=== PATIENT | female | born 1985 | race Caucasian/White ===

== ENCOUNTER 2017-05-05 10:15 | Emergency (ER) | payer OTHER ==
[2017-05-05 11:14] VITALS: BP 118/79
--- NOTE | 2017-05-05 11:33 | UC ---
Ear Complaint HPI - HPI Summary HPI Summary: Patient presents to the with L sided ear pain since yesterday. She has been having a cough and congestion x 2 weeks and now just developed the cough. She denies any and all other symptoms. Denies pain in the throat, however she notes to pain in the L side of the neck and feels as though the ear has been "draining." She is otherwise healthy and takes no medications. Endorses sick contacts. - History of Current Complaint Chief Complaint: UCEar Stated Complaint: LEFT EAR PAIN Time Seen by Provider: 05/05/17 11:16 Hx Obtained From: Patient Hx Last Menstrual Period: 04/11/17 ?: No Onset/Duration: Sudden Onset Severity Initially: Moderate Severity Currently: Moderate Pain Intensity: 4 Associated Signs/Symptoms: Positive: URI Symptoms. Negative: Discharge, Hearing Loss, Foreign Body Sensation, Trauma to Ear - Allergies/Home Medications Allergies/Adverse Reactions: Allergies Allergy/AdvReac Type Severity Reaction Status Date / Time Penicillins Allergy Intermediate Rash Verified 05/05/17 11:17 Erythromycin Allergy Mild Stomach Verified 05/05/17 11:17 Cramps Home Medications: Home Medications Multiple Vitamins W/ Minerals [Multivitamin Womens] 1 tab PO DAILY 05/05/17 [ History Confirmed 05/05/17] PMH/Surg Hx/FS Hx/Imm Hx Previously Healthy: Yes - Surgical History Surgical History: Yes Surgery Procedure, Year, and Place: c- section, 2009 - Family History Known Family History: Positive: None - Social History Occupation: Employed Full-time Lives: With Family Alcohol Use: Rare Substance Use Type: None Smoking Status (MU): Never Smoked Tobacco - Immunization History Most Recent Influenza Vaccination: 02/17/15 Most Recent Tetanus Shot: 03/03/15 Most Recent Pneumonia Vaccination: never Review of Systems Constitutional: Negative Skin: Negative Eyes: Negative ENT: Ear Ache Respiratory: Negative, Cough Motor: Negative Neurovascular: Negative Musculoskeletal: Negative Neurological: Negative Is Patient Immunocompromised?: No All Other Systems Reviewed And Are Negative: Yes Physical Exam Triage Information Reviewed: Yes Appearance: Well-Appearing, Well-Nourished Vital Signs: Initial Vital Signs Temp 98.6 F 05/05/17 11:07 Pulse 90 05/05/17 11:07 Resp 18 05/05/17 11:07 BP 118/79 05/05/17 11:07 Pulse Ox 100 05/05/17 11:07 Vital Signs Reviewed: Yes Eye Exam: Normal Eyes: Positive: Conjunctiva Clear ENT: Positive: Pharynx normal, TMs normal. Negative: TM bulging, TM dull, TM red, Tonsillar swelling, Tonsillar exudate, Muffled voice, Dental tenderness, Sinus tenderness, Uvula midline Neck exam: Normal Neck: Positive: Supple, No Lymphadenopathy Respiratory Exam: Normal Respiratory: Positive: Chest non-tender, Lungs clear Neurological Exam: Normal Neurological: Positive: Alert Psychological: Positive: Normal Response To Family, Age Appropriate Behavior Skin Exam: Normal Ear Complaint Course/Dx - Course Course Of Treatment: Patient presents to the with L sided ear pain, cough and congestion. She denies wanting any medication for the cough, but states she would like to know if she has an ear infection. The TM's are clear with + cone of light. No erythema, pus pocket or drainage. I have advised she take an allergy medication which would draw the fluid out of the ear. For her URI symptoms, I have explained it is common for her to have fluid back up in the ear. She is unable to swallow tabs, so I have advised children's claritin chewables (to take 2). - Differential Dx/Diagnosis Provider Diagnoses: URI Discharge - Discharge Plan Condition: Stable Disposition: HOME Patient Education Materials: Earache (ED) Referrals: No Primary Care Phys,NOPCP [Primary Care Provider] - Additional Instructions: You have fluid in the ear which is treated with antihistamines Take the OTC children's chewable claritin. (loratadine) (Take 2 tabs or 10mg) You may also try SUDAFED (this will help draw out the fluid as well) If your symptoms become worse, return to the Humidifier in the home will help Drink plenty of liquids
== END 2017-05-05 11:29 | disposition home or self-care (01) ==
LOC: UCEAST 10:15
DX: J06.9 Acute upper respiratory infection, unspecified (principal); Z88.0 Allergy status to penicillin; Z88.1 Allergy status to other antibiotic agents
CPT/HCPCS: 99211; G0463

== ENCOUNTER 2019-01-06 08:30 | Emergency (ER) | payer BC, OTHER ==
[2019-01-06 08:41] VITALS: BP 136/84
--- NOTE | 2019-01-06 09:15 | UC ---
Eye Complaint HPI - HPI Summary HPI Summary: 33 year old female with no PMH, no medications, presents with irritation, drainage of L eye. Has a 3 year old at home, who was dx'd with bacterial conjunctivitis beginning of December, and her father dx'd ! 1-2 weeks ago. NO vision changes, + contact lens wearing, has not been wearing for past 2 days. no fever, chills, no sinus/ ear, throat pain. no other symptoms. - History of Current Complaint Chief Complaint: UCEye Stated Complaint: POSSIBLE PINK EYE Time Seen by Provider: 01/06/19 08:49 Hx Obtained From: Patient Hx Last Menstrual Period: stopped the pill 12/21, trying to become ?: No Onset/Duration: Sudden Onset Timing: Constant Severity Initially: Mild Severity Currently: None Pain Intensity: 1 Pain Scale Used: 0-10 Numeric Location of Injury: Conjunctiva Aggravating Factor(s): Nothing Alleviating Factor(s): Nothing Associated Signs And Symptoms: Positive: Negative, Drainage (Clear), Drainage ( Purulent). Negative: Vision Impairment Right, Vision Impairment Left, Fever, Swelling - Allergies/Home Medications Allergies/Adverse Reactions: Allergies Allergy/AdvReac Type Severity Reaction Status Date / Time erythromycin base Allergy Stomach Verified 01/06/19 08:42 Cramps Penicillins Allergy Rash Verified 01/06/19 08:42 PMH/Surg Hx/FS Hx/Imm Hx Previously Healthy: Yes - Surgical History Surgical History: Yes Surgery Procedure, Year, and Place: c- section, 2009 - Family History Known Family History: Positive: None, Non-Contributory - Social History Alcohol Use: Rare Substance Use Type: None Smoking Status (MU): Never Smoked Tobacco - Immunization History Most Recent Influenza Vaccination: 02/17/15 Most Recent Tetanus Shot: 03/03/15 Most Recent Pneumonia Vaccination: never Review of Systems All Other Systems Reviewed And Are Negative: Yes Constitutional: Negative: Fever, Chills, Fatigue Eyes: Positive: Drainage, Eye Redness. Negative: Blurred Vision, Photophobia Is Patient Immunocompromised?: No Physical Exam Triage Information Reviewed: Yes Appearance: Well-Appearing, No Pain Distress, Well-Nourished Vital Signs: Initial Vital Signs Temp 98.0 F 01/06/19 08:34 Pulse 86 01/06/19 08:34 Resp 18 09/02/19 08:34 BP 136/84 01/06/19 08:34 Pulse Ox 100 01/06/19 08:34 Vital Signs Reviewed: Yes Eyes: Positive: Conjunctiva Inflamed - Left sided, inflammed, no drainage noted.. Negative: Discharge ENT: Positive: Pharynx normal, TMs normal, Uvula midline. Negative: Tonsillar swelling, Tonsillar exudate, Sinus tenderness Neck: Positive: Supple, Nontender, No Lymphadenopathy Neurological Exam: Normal Psychological Exam: Normal Skin Exam: Normal Eye Complaint Course/Dx - Course Course Of Treatment: Bacterial Conjunctivitis: - Cipro antibacterial eye drops: 1 to 2 drops 4 times daily for 5 to 7 days, may stop using when symptom free for 24 hours - Do NOT use contacts until symptom free for 48 hours. Throw away old contacts , start with new pack - Follow up with opthamologist or go to ER within 3-5 days if symptoms do not improve or if symptoms get worse, painful eye, increased drainage, vision changes. - Tylenol/ Motrin as needed for pain - GOod hygiene, change anything daily that comes into contact with eyes such as pillow cases, washcloths. Very contagious - Differential Dx/Diagnosis Differential Diagnosis/HQI/PQRI: Conjunctivitis, Foreign Body, Uveitis Provider Diagnosis: Conjunctivitis Discharge ED - Sign-Out/Discharge Documenting (check all that apply): Patient Departure All imaging exams completed and their final reports reviewed: No Studies - Discharge Plan Condition: Good Disposition: HOME Prescriptions: Ciprofloxacin 0.3% OPTH.STEVAN* [Cipro 0.3% Opth*] 1 drop BOTH EYES QID #1 [id number] Patient Education Materials: Conjunctivitis (ED) Referrals: Germán Acevedo MD [Primary Care Provider] - Additional Instructions: Bacterial Conjunctivitis: - Cipro antibacterial eye drops: 1 to 2 drops 4 times daily for 5 to 7 days, may stop using when symptom free for 24 hours - Do NOT use contacts until symptom free for 48 hours. Throw away old contacts , start with new pack - Follow up with opthamologist or go to ER within 3-5 days if symptoms do not improve or if symptoms get worse, painful eye, increased drainage, vision changes. - Tylenol/ Motrin as needed for pain - GOod hygiene, change anything daily that comes into contact with eyes such as pillow cases, washcloths. Very contagious - Billing Disposition and Condition Condition: GOOD Disposition: Home - Attestation Statements Provider Attestation: Per institutional requirements, I have reviewed the chart, however, I was not consulted specifically or made aware of this patient by the midlevel provider. I did not personally evaluate, interact with , or disposition this patient.
== END 2019-01-06 09:10 | disposition home or self-care (01) ==
LOC: UCEAST 08:30
DX: H10.89 Other conjunctivitis (principal); Z88.0 Allergy status to penicillin
CPT/HCPCS: 99212; G0463

== ENCOUNTER 2020-07-21 13:17 | Inpatient (IN) ==
[2020-07-21] MEDS ORDERED: Buffered Lidocaine 1% SYRIN 1 ml INTRADERM ONE ×2 (14:48→14:59)
[2020-07-21] MEDS ORDERED: ceFOXitin 2 GM IVPREMIX 2 GM/50 ML BAG IVPB ONE (14:48)
[2020-07-21] MEDS ORDERED: Lactated Ringers 1000 ml BAG 1,000 ML IV ONE (14:48)
[2020-07-21] MEDS ORDERED: Sodium Citrate/Citric Acid LIQ 15 ML UDC PO ONE (14:59)
[2020-07-21] MEDS ORDERED: Lactated Ringers 1000 ml BAG 1,000 ML IV SCH ×3 (15:00→22:00)
[2020-07-21 16:06] LABS: ABS Lymphocytes 1.6 10^3/ul (1.0-4.8); ABS Monocytes 0.5 10^3/ul (0-0.8); ABS Neutrophils 6.3 10^3/ul (1.5-7.7); Eosinophil % 0.3 %; Hematocrit 32 % (35-47); Hemoglobin 10.4 g/dL (12.0-16.0); Lymphocyte % 18.8 %; Mean Corpuscular HGB Conc 33 g/dL (31-36); Mean Corpuscular Hemoglobin 27 pg (27-31); Mean Corpuscular Volume 82 fL (80-97); Mean Platelet Volume 8.5 fL (7.4-10.4); Platelet Count 311 10^3/uL (150-450); Red Blood Count 3.86 10^6 /uL (3.70-4.87); Red Cell Distribution Width 16 % (10-15); White Blood Count 8.5 10^3/uL (3.5-10.8)
[2020-07-21 16:35] LABS: Urine Benzodiazepine Screen None Detected (None Detect); Urine Cannabinoids Screen None Detected (None Detect); Urine Opiates Screen None Detected (None Detect)
[2020-07-21] MEDS ORDERED: Lidocaine 1% VIAL 10 MG/ML VIAL ONE (17:47)
[2020-07-21] MEDS ORDERED: Ondansetron 4 mg VIAL 2 MG/ML 2 ml VIAL IV PRN (20:06)
[2020-07-21] MEDS ORDERED: Naloxone 0.4 mg VIAL 0.4 mg/ml 1 ml VIAL IV PRN (20:06)
[2020-07-21] MEDS ORDERED: Acetaminophen IV 1 GM/100ML 1,000 MG/100 ML VIAL IVPB ONE (20:06)
[2020-07-21] MEDS ORDERED: diPHENhydraMINE IV 50 MG/ML 1 ml VIAL (BENADRYL) IV PRN (20:06)
[2020-07-21] MEDS ORDERED: Witch Hazel PAD JAR TOPICAL PRN (22:00)
[2020-07-22 07:32] LABS: ABS Lymphocytes 1.5 10^3/ul (1.0-4.8); ABS Neutrophils 12.8 10^3/ul (1.5-7.7); Hematocrit 26 % (35-47); Hemoglobin 8.4 g/dL (12.0-16.0); Lymphocyte % 9.6 %; Mean Corpuscular HGB Conc 33 g/dL (31-36); Mean Corpuscular Hemoglobin 27 pg (27-31); Mean Corpuscular Volume 83 fL (80-97); Mean Platelet Volume 8.4 fL (7.4-10.4); Platelet Count 276 10^3/uL (150-450); Red Blood Count 3.08 10^6 /uL (3.70-4.87); Red Cell Distribution Width 16 % (10-15); White Blood Count 15.3 10^3/uL (3.5-10.8)
[2020-07-22] MEDS: Docusate LIQ 100 MG/10 ML UDC PO SCH (22:23)
[2020-07-23] MEDS: Docusate LIQ 100 MG/10 ML UDC PO SCH ×4 (09:59→19:58)
[2020-07-23] MEDS: Ibuprofen ADULT LIQ 600 MG/30 ML UDC PO PRN ×2 (13:15→18:44)
[2020-07-23 18:14] VITALS: BP 135/88
[2020-07-24] MEDS: Ibuprofen ADULT LIQ 600 MG/30 ML UDC PO PRN ×2 (00:15→08:23)
[2020-07-24] MEDS: Docusate LIQ 100 MG/10 ML UDC PO SCH (08:44)
== END 2020-07-24 12:05 | disposition home or self-care (01) | DRG 540 ==
LOC: MCHOB 14:21
PROVIDERS: ADMIT Obstetrics & Gynecology; ATTEND Obstetrics & Gynecology